=== PATIENT | female | born 1965 | race Caucasian/White ===

== ENCOUNTER 2020-03-22 18:19 | Emergency (ER) | payer BC ==
--- NOTE | 2020-03-22 20:08 | ER Document Report ---
ED Medical Screen (RME) - General Chief Complaint: Headache Stated Complaint: HEADACHE Time Seen by Provider: 03/22/20 19:59 Mode of Arrival: Wheelchair Information source: Patient Notes: HPI; 54-year-old female presents emergency room with a sudden onset of a posterior headache earlier this evening. States she was just sitting and talking to a friend when she got the sharp stabbing pain to the back of her head. She denies any head trauma or injury. Denies sudden thunderclap. However states it was the worst headache she is ever had. States after the headache started and 911 was called she started shaking and having difficulty remembering everything. She states that she was given Zofran and Toradol with improvement over her headache. PE: Alert and oriented x3. PERRLA, EOMI lungs: Clear to auscultation without rales, rhonchi, wheezes. Heart: Regular rate and rhythm without murmurs, rubs, gallops. Patient is answering questions appropriately and states her headache has significantly improved after receiving medicine from EMS. I have greeted and performed a rapid initial assessment of this patient. A comprehensive ED assessment and evaluation of the patient, analysis of test results and completion of the medical decision making process will be conducted by additional ED providers. I have specifically instructed the patient or family members with the patient to immediately return to any nursing staff should anything change in the patient's condition or with their chief complaint. TRAVEL OUTSIDE OF THE [place] IN LAST 30 DAYS: No - Related Data Allergies/Adverse Reactions: amoxicillin Allergy (Verified 03/22/20 19:58) ampicillin Allergy (Verified 03/22/20 19:59) fluconazole [From Diflucan] Allergy (Verified 03/22/20 19:59) Penicillins Allergy (Verified 03/22/20 19:59) Past Medical History - Social History Frequency of alcohol use: Occasional Drug Abuse: None Physical Exam - Vital signs Vitals: Temp Pulse Resp BP Pulse Ox 97.3 F 95 20 152/135 H 98 03/22/20 18:26 03/22/20 18:26 03/22/20 18:26 03/22/20 18:26 03/22/20 18:26 Course - Vital Signs Vital signs: Temp Pulse Resp BP Pulse Ox 97.3 F 95 20 152/135 H 98 03/22/20 18:26 03/22/20 18:26 03/22/20 18:26 03/22/20 18:26 03/22/20 18:26
[2020-03-22 20:40] LABS: ABSOLUTE BASOPHILS # (AUTO) 0.1 10^3/uL (0.0-0.2); ABSOLUTE EOSINOPHILS # (AUTO) 0.1 10^3/uL (0.0-0.6); ABSOLUTE MONOCYTES (AUTO) 0.9 10^3/uL (0.1-1.4); ABSOLUTE NEUT (AUTO) 13.8 10^3/uL (1.7-8.2); BASOPHILS % (AUTO) 0.3 % (0-2); EOSINOPHILS % (AUTO) 0.4 % (0-6); HEMATOCRIT 39.2 % (36.0-47.0); HEMOGLOBIN 13.3 g/dL (12.0-15.5); LYMPHOCYTES % (AUTO) 11.8 % (13-45); MEAN CORPUSCULAR HEMOGLOBIN 27.9 pg (27.0-33.4); MEAN CORPUSCULAR VOLUME 82 fl (80-97); MONOCYTES % (AUTO) 5.5 % (3-13); PLATELET COUNT 314 10^3/uL (150-450); RED BLOOD COUNT 4.77 10^6/uL (3.72-5.28); RED CELL DISTRIBUTION WIDTH 14.1 % (11.5-14.0); TOTAL CELLS COUNTED % (AUTO) 100 %; WHITE BLOOD COUNT 16.8 10^3/uL (4.0-10.5)
--- NOTE | 2020-03-22 20:57 | RADIOLOGY REPORT (SQ) ---
EXAM DESCRIPTION: CT head without contrast CLINICAL HISTORY: 54 years Female, headache COMPARISON: None. TECHNIQUE: Axial images of the head were performed without the use of intravenous contrast, with sagittal and coronal reformatted images. This exam was performed according to our departmental dose-optimization program which includes use of Automated Exposure Control, adjustment of the mA and/or kV according to patient size and/or use of iterative reconstruction technique. FINDINGS: There is mild right ethmoid sinus disease. The sinuses are otherwise clear. No evidence of acute hemorrhage or infarct. No evidence of mass or hydrocephalus. IMPRESSION: Mild right ethmoid sinus disease. No intracranial finding.
[2020-03-22 21:01] LABS: ALBUMIN 4.6 g/dL (3.5-5.0); ALKALINE PHOSPHATASE 71 U/L (38-126); ANION GAP 6 (5-19); ASPARTATE AMINO TRANSFERASE 19 U/L (14-36); BILIRUBIN,DIRECT 0.1 mg/dL (0.0-0.4); BILIRUBIN,TOTAL 0.4 mg/dL (0.2-1.3); BLOOD UREA NITROGEN 25 mg/dL (7-20); C-REACTIVE PROTEIN 5.3 mg/L (<10.0); CALCIUM 9.8 mg/dL (8.4-10.2); CARBON DIOXIDE 27 mmol/L (22-30); CHLORIDE 101 mmol/L (98-107); GLUCOSE 117 mg/dL (75-110); POTASSIUM 4.4 mmol/L (3.6-5.0); TOTAL PROTEIN 7.4 g/dL (6.3-8.2)
[2020-03-22 21:31] LABS: ERYTHROCYTE SEDIMENTATION RATE 14 mm/hr (0-30)
[2020-03-22 22:46] VITALS: BP 126/78
[2020-03-22] MEDS ORDERED: ACETAMINOPHEN 325 MG TABLET PO ONE (23:02)
[2020-03-22] MEDS ORDERED: ONDANSETRON 4 MG TAB.RAPDIS PO ONE (23:20)
[2020-03-22] MEDS ORDERED: DIPHENHYDRAMINE HCL 50 MG/ML VIAL IV ONE (23:21)
[2020-03-22] MEDS ORDERED: RINGERS SOLUTION,LACTATED 1,000 ML IV ONE (23:21)
--- NOTE | 2020-03-23 03:31 | ER Document Report ---
ED General - General Chief Complaint: Headache Stated Complaint: HEADACHE Time Seen by Provider: 03/22/20 19:59 Primary Care Provider: SILAS BAILEY MD [Primary Care Provider] - Follow up as needed Mode of Arrival: Wheelchair TRAVEL OUTSIDE OF THE [place] IN LAST 30 DAYS: No - HPI Notes: Patient is a 54-year-old female with a history of migraine headaches who presents for sudden onset of headache. Patient was at her friend's house around 5PM this evening, when she suddenly felt a sharp, stabbing pain to the back of her head. EMS was called and the patient was brought to the emergency department. Patient reports nausea, 1 episode of vomiting, abdominal pain, photophobia, and shaking of her arms and legs. Patient's headache improved after being treated with Tylenol, Benadryl and Zofran by EMS. Patient states her headache returned around 10:30PM this evening and she repeat received another dose of Tylenol, Benadryl, and Zofran. Patient states this headache is unlike her usual migraine headaches. She denies SOB, chest pain, diarrhea, and fever. Patient is currently on a Prednisone taper due allergy issues that she is seeing an windlasser for. - Related Data Allergies/Adverse Reactions: amoxicillin Allergy (Verified 03/22/20 19:58) ampicillin Allergy (Verified 03/22/20 19:59) fluconazole [From Diflucan] Allergy (Verified 03/22/20 19:59) Penicillins Allergy (Verified 03/22/20 19:59) Past Medical History - General Information source: Patient - Social History Smoking Status: Former Smoker Frequency of alcohol use: Occasional Drug Abuse: None Family History: Reviewed & Not Pertinent Patient has homicidal ideation: No Review of Systems - Review of Systems Constitutional: No symptoms reported EENT: No symptoms reported Cardiovascular: No symptoms reported Respiratory: No symptoms reported Gastrointestinal: See HPI Genitourinary: No symptoms reported Female Genitourinary: No symptoms reported Musculoskeletal: No symptoms reported Skin: No symptoms reported Hematologic/Lymphatic: No symptoms reported Neurological/Psychological: See HPI Physical Exam - Vital signs Vitals: Temp Pulse Resp BP Pulse Ox 97.3 F 95 20 152/135 H 98 03/22/20 18:26 03/22/20 18:26 03/22/20 18:26 03/22/20 18:26 03/22/20 18:26 - Notes Notes: PHYSICAL EXAMINATION: VITALS: Vitals reviewed and within normal limits. GENERAL: Well-appearing, well-nourished and in no acute distress. HEAD: Atraumatic, normocephalic. EYES: Pupils equal, round, and reactive to light, extraocular movements intact, sclera anicteric, conjunctiva are normal. ENT: nares patent, oropharynx clear without exudates. Moist mucous membranes. NECK: Normal range of motion, supple without lymphadenopathy. LUNGS: Breath sounds clear to auscultation bilaterally and equal. No wheezes rales or rhonchi. HEART: Regular rate and rhythm without murmurs. ABDOMEN: Soft, nontender, normoactive bowel sounds. No guarding, no rebound. No masses appreciated. EXTREMITIES: Normal range of motion, no pitting or edema. No cyanosis. NEUROLOGICAL: No focal neurological deficits. Moves all extremities spontaneously and on command. PSYCH: Normal mood, normal affect. SKIN: Warm, Dry, normal turgor, no rashes or lesions noted. Course - Re-evaluation Re-evalutation: Patient is a 54-year-old female with a history of migraines who presents with sudden onset of headache that began around 5 PM this evening. Patient describes the headache as a sharp, stabbing pain to the occipital region of her head. On exam, pupils are equal, round and reactive to light. Cranial nerves II through XII are grossly intact. Neck is supple, nontender and no nuchal rigidity. Vital signs are within normal limits. WBC is elevated at 16.8 but this is consistent with her current prednisone use. Patient noted significant improvement in her headache with Tylenol, Benadryl and Zofran. Lab work is otherwise unremarkable. CT head shows no evidence of acute hemorrhage or infarct. Mild right ethmoid sinus disease is also noted on CT. Results discussed with patient. Patient denies any sinusitis symptoms. As head CT is negative and patient had significant improvement with medication therapy, I feel it safe for the patient to be discharged home. Prescription for Zofran given. Patient instructed to continue taking Tylenol, Benadryl, Zofran as needed for headache relief. Return precautions given. Patient instructed to follow-up with her primary care provider. - Vital Signs Vital signs: Temp Pulse Resp BP Pulse Ox 97.6 F 98 20 126/78 H 100 03/22/20 22:42 03/22/20 22:42 03/22/20 22:42 03/22/20 22:42 03/22/20 22:42 - Laboratory Result Diagrams: 03/22/20 20:20 03/22/20 20:20 Laboratory results interpreted by me: 03/22/20 03/22/20 20:20 20:20 WBC 16.8 H RDW 14.1 H Lymph % (Auto) 11.8 L Absolute Neuts (auto) 13.8 H Seg Neutrophils % 82.0 H Sodium 133.9 L BUN 25 H Glucose 117 H - Diagnostic Test Radiology reviewed: Reports reviewed Radiology results interpreted by me: Head CT 03/22/20 20:04 IMPRESSION: Mild right ethmoid sinus disease. No intracranial finding. Discharge - Discharge Clinical Impression: Headache Qualifiers: Headache type: unspecified Headache chronicity pattern: acute headache Intractability: not intractable Qualified Code(s): R51 - Headache Nausea and vomiting Qualifiers: Vomiting type: unspecified Vomiting Intractability: unspecified Qualified Code(s): R11.2 - Nausea with vomiting, unspecified Condition: Stable Disposition: HOME, SELF-CARE Additional Instructions: Take Imitrex as prescribed or Tylenol 650mg and Benadryl 25-50mg every 6 hours as needed for headache. Can take with zofran as needed for nausea. Headache The physician does not feel that the headache you are experiencing has a serious underlying cause. Most headaches are due to emotional stress, with resultant muscle tension (tension headache). Occasionally, headaches are secondary to changes in the blood vessels of the scalp (vascular headache and m igraine headache). Sometimes, a headache is the first symptom of another developing illness, such as a viral infection. You have no evidence of stroke, bleeding, meningitis, or other serious cause of your headache. The treatment of headaches varies with the severity and cause of the pain. Not all headaches need pain shots. In fact, there is evidence that using narcotics for headaches may make them worse in the long run. The physician will determine the therapy that's in your best interest. If you develop a fever, if the headache is different from any you've previously experienced, or if the headache progressively worsens, then call your physician at once or go to the emergency room. Prescriptions: Ondansetron [Zofran Odt 4 mg Tablet] 1 - 2 tab PO Q4HP PRN #15 tab.rapdis PRN Reason: Referrals: ISLAS BAILEY MD [Primary Care Provider] - Follow up as needed
[2020-03-23] MEDS ORDERED: ONDANSETRON ODT 4 MG TAB (6 TAB/ER DISP) PO PRN (03:40)
[2020-03-23] MEDS ORDERED: ACETAMINOPHEN 325 MG TABLET PO ONE (04:08)
== END 2020-03-23 04:17 | disposition home or self-care (01) ==
LOC: ER 18:19
DX: R51 Headache (principal); R11.2 Nausea with vomiting, unspecified; R10.9 Unspecified abdominal pain; H53.149 Visual discomfort, unspecified
CPT/HCPCS: 99285; 96361; 96374; 36415; 85025; 85652; 86140; 80053; 70450; J1200; S0119; J7120